=== PATIENT | female | born 1970 | race Caucasian/White ===

== ENCOUNTER 2016-07-25 19:24 | Emergency (ER) | payer BC ==
[~2016-07-25] VITALS: Ht 152.4 cm; Wt 50.8 kg
[2016-07-25] MEDS ORDERED: LEVA15HF5 IH (19:42)
[2016-07-25 20:14] LABS: *BILIRUBIN,URIN NEGATIVE (NEGATIVE); *BLOOD, URINE Trace-intact (NEGATIVE); *CLARITY,URINE CLEAR (CLEAR); *COLOR,URINE STRAW (YELLOW); *KETONES,URINE NEGATIVE (NEGATIVE); *PROTEIN,URINE NEGATIVE (NEGATIVE); *UROBILINOGEN,URINE 0.2 E.U./dl (NORMAL); LEUKOCYTE ESTERASE ,URINE NEGATIVE (NEGATIVE); NITRITE, URINE NEGATIVE (NEGATIVE); UGLUCOSE NEGATIVE (NEGATIVE)
[2016-07-25] MEDS ORDERED: IV NORMAL SALINE 1000 ML BAG IV ONE (20:15)
[2016-07-25] MEDS ORDERED: ONDANSETRON 4 MG/2 ML VIAL IV ONE (20:15)
[2016-07-25] MEDS ORDERED: DIATR MEGLU/DIATRIZOATE SODIUM 120 ML BOTTLE PO ONE (20:15)
[2016-07-25] MEDS ORDERED: HYDROMORPHONE 1 MG/1 ML DISP.SYRIN IV ONE ×2 (20:15→23:45)
[2016-07-25 20:24] LABS: RBC,URINE 0-3 /HPF (0-3); SQUAMOUS EPITHELIAL CELL,UR FEW /HPF (NONE SEEN); WBC,URINE 0-3 /HPF (0-3)
[2016-07-25 20:29] LABS: BASOPHILS % (AUTO) 0.6 % (0.0-2.0); EOSINOPHILS # (AUTO) 0.1 K/uL (0.0-0.7); EOSINOPHILS % (AUTO) 2.5 % (0.0-7.0); HEMATOCRIT 38.3 % (37-47); LYMPHOCYTES # (AUTO) 1.2 K/UL (0.8-4.8); MEAN CORPUSCULAR HEMOGLOBIN 29.2 UUG (27.0-31.0); MEAN CORPUSCULAR HGB CONC 34 g/dL (32.0-37.0); MEAN CORPUSCULAR VOLUME 85.9 FL (81.0-99.0); MONOCYTES # (AUTO) 0.5 K/UL (0.1-1.30); MONOCYTES % (AUTO) 9.7 % (0.0-11.0); NEUTROPHILS # (AUTO) 3.2 K/UL (1.8-8.9); NEUTROPHILS % (AUTO) 63.2 % (38.5-71.5); PLATELET COUNT (AUTO) 181 K/UL (150-450); RED BLOOD CELL COUNT(AUTO) 4.46 MIL/UL (4.2-5.4); WHITE BLOOD COUNT (AUTO) 5.1 K/UL (4.0-11.2)
[2016-07-25] MEDS ORDERED: DIATR MEGLU/DIATRIZOATE SODIUM 120 ML BOTTLE ONE (20:29)
[2016-07-25] MEDS ORDERED: HYDROMORPHONE 1 MG/1 ML DISP.SYRIN ONE (20:29)
[2016-07-25] MEDS ORDERED: ONDANSETRON 4 MG/2 ML VIAL ONE (20:29)
--- NOTE | 2016-07-25 20:38 | NUR ---
Pt biba for c/o severe abd pain. Pt was seen at an Urgent [facility] and instructed to go to the ER. Pt sts pain became severe, pulled over and 911 called. Pt seen by . SHER established. Labs drawn and sent. Pt medicated for pain and nausea, will monitor for effects of medication. Pt given PO contrast. IV fluids infusing freely to gravity. Pt resting in position of comfort for self. Family at bedside
[2016-07-25 20:48] LABS: CREATININE 0.8 mg/dL (0.6-1.3); POTASSIUM 3.8 mmol/L (3.5-5.1)
[2016-07-25 20:58] LABS: BILIRUBIN,DIRECT 0.1 mg/dL (0.0-0.2); BILIRUBIN,TOTAL 0.3 mg/dL (0.2-1.0); TOTAL PROTEIN, SERUM 7.7 g/dL (6.4-8.2)
--- NOTE | 2016-07-25 21:15 | NUR ---
Pt sts pain improved with medication. Fluid bolus completed. Pt cont drinking po contrast.
[2016-07-25] MEDS ORDERED: NORMAL SALINE FLUSH 10 ML DISP.SYRIN ONE (21:17)
[2016-07-25] MEDS ORDERED: IV NORMAL SALINE 250 ML IV ONE (21:17)
[2016-07-25] MEDS ORDERED: IOHEXOL 300MG/ML 100 ML INFUS..BTL ONE (21:17)
--- NOTE | 2016-07-25 21:58 | NUR ---
Pt returned from ct via gurney. Pt resting in position of comfort for self. No complaints at this time.
[2016-07-25] MEDS ORDERED: DICYCLOMINE HCL 20 MG TABLET PO SCH (22:45)
[2016-07-25] MEDS ORDERED: DICYCLOMINE HCL 10 MG/5 ML UDC LIQ ONE (23:34)
[2016-07-25] MEDS ORDERED: KETOROLAC TROMETHAMINE 15 MG INJ IVP ONE (23:45)
[2016-07-26] MEDS ORDERED: KETOROLAC TROMETHAMINE 15 MG INJ ONE (00:01)
[2016-07-26] MEDS ORDERED: HYDROMORPHONE 1 MG/1 ML DISP.SYRIN ONE (00:01)
--- NOTE | 2016-07-26 00:05 | NUR ---
Pt c/o severe headache. Pt medicated for pain, will monitor for effects of medication. Then pt to be discharged.
--- NOTE | 2016-07-26 00:49 | NUR ---
Headache improving with medications. Pt stable for discharge per MD. IV dc'd, catheter intact. Drsg applied. No problems noted to site. Pt given ACI. Pt verbalized understanding of dc instructions. 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
[2016-07-26 00:51] VITALS: BP 104/65
== END 2016-07-26 00:51 | disposition home or self-care (01) ==
LOC: ER 19:26
DX: R10.9 Unspecified abdominal pain (principal); R51 Headache; J45.909 Unspecified asthma, uncomplicated; Z88.6 Allergy status to analgesic agent
CPT/HCPCS: 36415; 83690; 84703; 85025; 85730; 93005; A4663; J1170; J1885; J2405; J3490; J7030; J7050; Q9963; Q9967